=== PATIENT | male | born 1970 | race Caucasian/White ===

== ENCOUNTER 2024-10-01 10:48 | Emergency (ER) | payer MEDICAID ==
[~2024-10-01] VITALS: Ht 182.9 cm; Wt 56.8 kg
[2024-10-01 10:57] VITALS: BP 116/77; PULSE 109; RESP 16; TEMP 98.4; O2SAT 95
--- NOTE | 2024-10-01 11:36 | Physician Documentation ---
History of Present Illness ~ Chief Complaint: Catheter Problem Stated Complaint: CATH COMPLICATIONS Time Seen by MD: 11:50 HPI Presents to the ED with a complaint of a longstanding indwelling catheter. Said he is supposed to have his catheter replaced every month secondary to a neurogenic bladder and being paralyzed however he is seven days passed a month to have his catheter replaced and he was also diagnosed with a UTI. He states that he was prescribed ciprofloxacin not picked it up yet Day of Onset: Oct 01, 2024 Medication Reconciliation Allergies: Coded Allergies: No Known Allergies (Unverified , 10/01/24) Review of Systems All Other Systems at this time: Reviewed and Negative ROS As stated above in the HPI, otherwise all systems are reviewed and negative. Physical Exam Vital Signs: Temperature: 98.4, Source: Temporal, Heart Rate: 109, Respiratory Rate: 16, BP: 116/77, Pulse Oximetry: 95, Weight: 56.820 Oxygen Flow Rate: 0 Physical Exam General: Alert, no apparent distress. HEENT: PERRL, EOMI, no injection, moist mucous membranes. Neck: Full range of motion. Respiratory: Lungs clear, no respiratory distress. Chest: No accessory muscle use. Cardiovascular: Regular rate and rhythm, no murmurs. Gastrointestinal: Soft, nontender, nondistended. Bowels sounds present. Extremities: Normal range of motion, no deformity. Neurologic: Oriented x4. Psychiatric: Normal mood and affect. Skin: Normal color, warm and dry. No edema, no ecchymosis. Progress Results/Orders Results/Orders Orders - MARK GUPTA AUTOMOTIVE GENERATOR REPAIRER General Nursing Order (10/01/24 ) Vital Signs 10/01/24 10:57 Temp 98.4 Pulse 109 Resp 16 B/P (MAP) 116/77 Pulse Ox 95 O2 Flow Rate 0 Medical Decision Making Findings Patient has a Lim catheter was replaced, considering he has already been placed on antibiotics just needs to pick them up we will start him on Cipro here and have him parts picker his prescription at the pharmacy Urinary Diff Dx:Considerations: Include: AAA, Aortic dissection, Appendicitis, Appendicitis train, Bowel obstruction, Bladder outlet obstruc., Cholelithiasis, Choleangitis, Cholecystitis, DJD, Epididymitis, Hepatitis, HNP, Impaction, Musculoskeletal pain, Pancreatitis, Postoperative Comp., Prostatitis, Pyelonephritis, Renal failure, Renal infarction, Strain, Urolithiasis, Urinary Obstruction, Urethritis, Urinary retention, UTI, Other Departure Disposition: HOME / SELF CARE / HOMELESS Impression: Primary Impression: UTI (urinary tract infection) Condition: Stable Discharge Instructions: Indwelling Urinary Catheter Care, Adult Additional Instructions: Take your medication as prescribed. Referrals: NO PRIMARY CARE PROVIDER (PCP) Education Educated: Patient Educated regarding: diagnosis Signature Scribe Signature: v Attestation: The note accurately reflects work and decisions made by me.Mark Segovia NP 10/01/24 11:35 MARK GUPTA NP Oct 01, 2024 11:36
[2024-10-01] MEDS: ciprofloxacin 250mg tablet PO ONE (12:26)
== END 2024-10-01 12:40 | disposition home or self-care (01) ==
LOC: ER 10:49
DX: N39.0 Urinary tract infection, site not specified (principal)
CPT/HCPCS: 51702; 99284; A4314

== ENCOUNTER 2024-10-27 18:56 | Emergency (ER) | payer MEDICAID ==
[2024-10-27 19:05] VITALS: BP 161/83; PULSE 97; RESP 15; O2SAT 98
--- NOTE | 2024-10-27 21:01 | Physician Documentation ---
History of Present Illness ~ Chief Complaint: Wound Re-Check Stated Complaint: PRESSURE SORES Time Seen by MD: 19:41 Primary Medical Doctor: Out of town HPI Patient is seen today with complaints of bleeding pressure ulcer after wound debridement at wound care earlier today. Patient states he is on a blood thinner and is paralyzed from the waist down and is concerned about excessive bleeding after debridement of his pressure ulcer wound of his left buttocks. Patient has no other concern or complaint at this time. Tetanus within 5 years?: No Medication Reconciliation Allergies: Coded Allergies: No Known Allergies (Unverified , 10/27/24) Review of Systems Constitutional: Denies: chills, fever, weakness Eyes: Denies: pain, blurred vision ENT: Denies: ear pain, nose pain, throat pain, mouth pain Respiratory: Denies: cough, shortness of breath Cardiovascular: Denies: chest pain, palpitations Gastrointestinal: Denies: abdominal pain, nausea, vomiting Genitourinary: Denies: burning, dysuria Male Genitalia: Denies: penile discharge, testicular pain Neurological: Denies: headache, dizziness Musculoskeletal: Denies: pain, swelling Integumentary: Denies: rash, lesions Allergic/Immunologic: Denies: hives, itching Hematologic/Lymphatic: Denies: no symptoms reported Psychiatric: Denies: depression, anxiety Physical Exam Vital Signs: Temperature: 98.2, Heart Rate: 97, Respiratory Rate: 15, BP: 161/83, Pulse Oximetry: 98 Physical Exam General: Awake and Alert, no acute distress. HEENT: Conjunctiva pink, Sclera clear, Mucus Membranes moist. Neck: Supple without masses and tenderness. Resp: Unlabored. Lungs clear to auscultation bilaterally. Heart: Regular Rate and rhythm, normal S1 and S2 without murmur, rub or gallop. Extremities: No cyanosis,clubbing or edema. Skin: Patient on exam does have pressure ulcer of left buttocks that is not actively bleeding however the bandage is soaked with blood. There is no surrounding erythema or sign of infection. Ulceration is approximately 1 cm in diameter. Progress Results/Orders Results/Orders Vital Signs 10/27/24 19:05 Temp 98.2 Pulse 97 Resp 15 B/P (MAP) 161/83 Pulse Ox 98 Medical Decision Making Findings Patient is seen today with complaints of bleeding pressure ulcer after wound debridement at wound care earlier today. Patient states he is on a blood thinner and is paralyzed from the waist down and is concerned about excessive bleeding after debridement of his pressure ulcer wound of his left buttocks. Patient has no other concern or complaint at this time. Patient did have wound bandaged and will have wound bandaged again in two days at his house and will follow up with Wound Care next Friday as patient outlined. Return to ED with any worsening, concerning or changing symptoms. Departure Disposition: HOME / SELF CARE / HOMELESS Impression: Primary Impression: Wound Condition: Improved Discharge Instructions: Wound Care, Adult Additional Instructions: Patient did have wound bandaged and will have wound bandaged again in two days at his house and will follow up with Wound Care next Friday as patient outlined. Return to ED with any worsening, concerning or changing symptoms. Referrals: NO PRIMARY CARE PROVIDER (PCP) Signature Scribe Signature: No scribe Attestation: No scribe ERIN RUBIN PAC Oct 27, 2024 21:01
[2024-10-27 21:30] VITALS: TEMP 98.2
== END 2024-10-27 21:31 | disposition home or self-care (01) ==
LOC: ER 18:57
DX: L89.329 Pressure ulcer of left buttock, unspecified stage (principal)
CPT/HCPCS: 99281; 99282; A6258

== ENCOUNTER 2024-11-02 11:36 | Inpatient (IN) | payer MEDICAID ==
[~2024-11-02] VITALS: Ht 182.9 cm; Wt 59.1 kg
--- NOTE | 2024-11-02 12:49 | Physician Documentation ---
History of Present Illness ~ Chief Complaint: Wound Stated Complaint: WOUNDS Time Seen by MD: 12:03 OK to notify your PCP?: Yes Primary Medical Doctor: Out of town HPI 54-year-old male presenting with a wound on his buttock area and his rights posterior thigh. Patient states that it does not have feeling in his legs because he is a paraplegic however he has noticed an increased mouth odorous sent over the past couple of days. Additionally he states that he has been having some subjective fevers and chills and that his abdomen has started to hurt slightly. 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 He ambulates by wheelchair and often gets wounds. He otherwise denies any chest pain, shortness of breath or any other associated symptoms. Tetanus within 5 years?: No Medication Reconciliation Allergies: Coded Allergies: No Known Allergies (Unverified , 11/02/24) Scheduled Clopidogrel Bisulfate (Clopidogrel), 1 TAB PO DAILY, (Reported) Losartan Potassium* (Cozaar*), 12.5 MG PO DAILY, (Reported) Methocarbamol (Methocarbamol), 1 TAB PO Q12H, (Reported) Metoprolol Succinate (Metoprolol Succinate), 12.5 MG PO DAILY, (Reported) Oxybutynin Chloride (Oxybutynin Chloride), 1 TAB PO DAILY, (Reported) Scheduled PRN Nitroglycerin SL* (Nitrostat SL*), 1 TAB SL Q5MIN PRN for Chest pain Q5min PRNx3-call MD, (Reported) Miscellaneous Medications Nitroglycerin (Nitroglycerin), (Reported) Discontinued Medications Apixaban (Eliquis), 1 TAB PO DAILY, (Reported) Losartan Potassium (Losartan Potassium), 1 TAB PO DAILY, (Reported) Discontinued Reason: wrong med Methocarbamol (Methocarbamol), (Reported) Discontinued Reason: Other Metoprolol Succinate (Metoprolol Succinate), 1 TAB PO DAILY, (Reported) Discontinued Reason: Other Review of Systems All Other Systems at this time: Reviewed and Negative Physical Exam Vital Signs: Temperature: 97.8, Source: Temporal, Heart Rate: 84, Respiratory Rate: 18, BP: 158/71, Pulse Oximetry: 98, Weight: 59.090 Physical Exam I have reviewed the triage vitals. CONST: Well developed and well nourished. In no acute distress HENT: Head Atraumatic EYES: Pupils are equal, round and reactive to light. Normal conjunctiva NECK: Normal range of motion. Supple. CARDIO: Normal rate and regular rhythm. No murmurs, rubs, or gallops. S1, S2. PULM/CHEST: No respiratory distress. Lungs clear to auscultation. No wheeze ABD: Soft and nontender. Nondistended. Bowel sounds normal. No guarding. : Exam deferred MSK: Paraplegia. There is a stage II decubitus ulcer with surrounding erythema and induration over the right buttock area as well as a stage I ulcer over the posterior right thigh with surrounding erythema. NEURO: Alert and oriented to person, place and time. Moving all extremities SKIN: Warm and dry. PSYCH: Normal mood and affect. Good eye contact. Progress Results/Orders Results/Orders Orders - VITO FLORES MD Culture Blood (11/02/24 12:42) Ct Abdomen Pelvis (11/02/24:) Page Hospitalist (11/02/24 16:45) Fill Out Med Reconciliation (11/02/24 16:45) Wound Care Consult (11/02/24 17:01) Electronic Die Maker (11/02/24 17:01) Completed Orders - VITO FLORES MD Electrocardiogram (11/02/24 12:42) Cbc/Diff (11/02/24 12:42) CK (11/02/24 12:42) CKMB (11/02/24 12:42) Pt Inr (11/02/24 12:42) PTT (11/02/24 12:42) PBNP (11/02/24 12:42) MG (11/02/24 12:42) CMP (11/02/24 12:42) Hs Troponin I W Calculations (11/02/24 12:42) Hs Troponin I W Calculations (11/02/24 14:42) Lacticsepsis (11/02/24 12:42) Ct Abdomen Pelvis (11/02/24 15:25) Iohexol 300mg/Ml 100ml Inj. (Omnipaque-3 (11/02/24 15:02) Ua W/Microscopic, Cult If Ind (11/02/24 15:35) Piperacillin/Tazo 3.375gm/50ml (Zosyn 3. (11/02/24 16:20) Normal Saline 1000ml (0.9% Sodium Chlori (11/02/24 16:20) Cult Urine + [address] (11/02/24 16:40) Vital Signs 11/02/24 11/02/24 11/02/24 11:52 13:01 15:02 Temp 97.8 Pulse 84 98 Resp 18 16 B/P (MAP) 158/71 125/89 (101) Pulse Ox 98 98 O2 Flow Rate 0 Laboratory Tests Test 11/02/24 12:45 11/02/24 12:54 11/02/24 14:44 11/02/24 15:35 Troponin I High Sensitivity 4 4 White Blood Count 8.7 Red Blood Count 4.58 L Hemoglobin 13.2 L Hematocrit 39.6 L Mean Corpuscular Volume 86.5 Mean Corpuscular Hemoglobin 28.9 Mean Corpuscular Hemoglobin Concent 33.4 Red Cell Distribution Width 14.3 Platelet Count 333 Mean Platelet Volume 7.1 L Neutrophils (%) (Auto) 63.1 Lymphocytes (%) (Auto) 23.4 Monocytes (%) (Auto) 9.3 Eosinophils (%) (Auto) 3.7 Basophils (%) (Auto) 0.5 Neutrophils # (Auto) 5.5 Lymphocytes # (Auto) 2.0 Monocytes # (Auto) 0.8 Eosinophils # (Auto) 0.3 Basophils # (Auto) 0.0 CBC Comment Prothrombin Time 9.8 INR International Normalized Ratio 1.0 Activated Partial Thromboplast Time 28 Coagulation Comments Sodium Level 136 Potassium Level 3.3 L Chloride Level 104 Carbon Dioxide Level 27.9 Anion Gap 4 L Blood Urea Nitrogen 11 Creatinine 0.63 Estimated GFR/1.73 m2 > 90 BUN/Creatinine Ratio 17.5 Glucose Level 87 Lactic Acid Level 0.9 Calcium Level 8.4 L Magnesium Level 1.9 Total Bilirubin 0.4 Aspartate Amino Transf (AST/SGOT) 14 Alanine Aminotransferase (ALT/SGPT) 39 Alkaline Phosphatase 78 Total Creatine Kinase 84 Creatine Kinase MB 0.6 Creatine Kinase MB Relative Index Pro-B-Type Natriuretic Peptide 73 Total Protein 7.1 Albumin 3.2 L Globulin 3.9 Albumin/Globulin Ratio 0.8 L Chemistry Comments Troponin I High Sens Percent Delta 0 Troponin I Hi Sens Absolute Change 0 Urine Specimen Description Voided Urine Color Straw Urine Clarity Slightly cloudy Urine pH 7.0 Urine Specific [place] 1.015 Urine Protein 30 H Urine Glucose (UA) Negative Urine Ketones Negative Urine Occult Blood Moderate H Urine Nitrite Positive H Urine Bilirubin Negative Urine Urobilinogen 0.2 Urine Leukocyte Esterase Large H Urine RBC 3-10 Urine WBC 50-100 H Urine WBC Clumps Moderate Urine Squamous Epithelial Cells None seen Urine Calcium Oxalate Crystals Few Urine Bacteria 2+ Urine Yeast Moderate Urine Culture Indicated Indicated Volume Urine Centrifuged 10 ml Urine Comment Microbiology Date/Time Source Procedure Growth Status 11/02/24 16:40 Urine Voided Urine Culture - Final Staphylococcus Aureus Complete EKG/XRAY/CT/US/VASC/MRI EKG : Additional Comment EKG, as interpreted by me indicating normal sinus rhythm with the rate of 92 bpm, normal access, no ischemia CT : Impression Exam: CT CT ABDOMEN PELVIS W/ IV CONTRAST History: abd and pelvic pain COMPARISON: None Technique: Multidetector spiral CT of the abdomen and pelvis was performed from lung bases to pubic symphysis. Intravenous contrast was administered during this examination. Portal venous imaging was obtained. Axial, coronal and sag ittal multiplanar reformats were performed by the technologist on a separate workstation. Radiation Dose : Abdomen/Pelvis: CTDIvol 17 mGy, DLP 901 mGy*cm. CONTRAST: Type of contrast: Omni 300 Contrast injected: 100 mL Findings: Lung Bases: No acute or significant lung base finding. Normal heart size. No pleural or pericardial effusion. Liver: The liver is normal in size. No focal lesions. Normal hepatic vascular enhancement. Gallbladder and biliary Tree: Unremarkable Spleen: Unremarkable Pancreas: The pancreas is normal in appearance without focal lesions or abnormal enhancement. Adrenal Glands: Unremarkable Kidneys: No hydronephrosis. Bilateral renal cysts. Bladder: Bladder is decompressed with a Adan catheter and cannot be adequately assessed. Bowel: The stomach is grossly normal in appearance. Small bowel and colon are normal in caliber and distribution. Normal appendix is visualized in the right lower quadrant without findings of appendicitis. Ascites: Absent Lymphadenopathy: Shotty retroperitoneal lymphadenopathy. Mildly prominent bilateral inguinal lymph nodes. Abdominal wall and Mesentery: Unremarkable. Vasculature: The visualized abdominal aorta is normal in size and caliber. Abdominal and pelvic vessels demonstrate normal enhancement. Pelvic Organs: Unremarkable Musculoskeletal: Severe atrophy of the pelvic and lower extremity musculature. Open wound in the posterior left gluteal region. Possible open wound in the posterior right gluteal region. No loculated subcutaneous fluid collection. Fatty stranding extending to the inferior pubic rami bilaterally. IMPRESSION: 1. No acute abdominal or pelvic finding. 2. Likely bilateral open decubitus ulcers greater on the left. No loculated fluid collection in the subcutaneous tissues. Fatty stranding extends to the inferior pubic rami bilaterally. Clinical correlation and continued follow-up is recommended. Shotty retroperitoneal lymphadenopathy. Mildly prominent bilateral inguinal lymph nodes. Could be reactive. 3. Bilateral renal cysts. Radiation optimization: All CT scans at this facility use at least one of these dose optimization techniques: Automated exposure control mA and/or kV adjustment per patient size (includes targeted exams where dose is matched to clinical indication) or iterative reconstruction. Medical Decision Making Additional Comment 54 year-old male paraplegic presenting with bilateral sacral decubitus ulcers with wound infections. Additionally he has a UTI with indwelling chronic adan catheter. Patient was medicated with IV vancomycin and Zosyn as well as IV fluids. A CT of the abdomen and pelvis showed some fat stranding around the site of the ulcers. Additionally, he has some edema and fat training around his pubic synthesis as well. Patient will require admission for further treatment and care. Departure Disposition: 09 ADMITTED INPATIENT Admission Level of Care: Med/Surg with Tele Impression: Primary Impression: UTI (urinary tract infection) Additional Impressions: Wound cellulitis Sacral decubitus ulcer Condition: Guarded Referrals: NO PRIMARY CARE PROVIDER (PCP) Signature Scribe Signature: 1 Attestation: 1 VITO FLORES MD Nov 02, 2024 12:49
--- NOTE | 2024-11-02 13:08 | ELECTROCARDIOGRAPH REPORT ---
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 Graham Rm Measurements Intervals [place] Rate: 83 P: 62 IN: 117 QRS: 53 QRSD: 89 T: 54 QT: 342 QTc: 402 Interpretive Statements Sinus rhythm Borderline short IN interval Electronically Signed On 11-10-2024 20:07:[address] Graham Rm Please click the below link to view image of tracing.
[2024-11-02 13:11] LABS: MEAN PLATELET VOLUME 7.1 FL (7.4-10.4); RED CELL DISTRIBUTION WIDTH 14.3 % (11.5-14.5)
[2024-11-02 13:24] LABS: APTT 28 SECONDS (22-32); INR 1.0 INR
[2024-11-02 13:36] LABS: CREATININE 0.63 MG/DL (0.60-1.10); TOTAL CARBON DIOXIDE 27.9 MMOL/L (24-32); eCRCL 113 ML/MIN; eGFR > 90 ML/MIN
[2024-11-02 13:39] LABS: CREATINE KINASE MB 0.6 ng/ml (0.3-3.6); PRO BRAIN NATRIURETIC PEPTIDE 73 PG/ML (0-125)
[2024-11-02] MEDS ORDERED: iohexol 300mg/ml 100ml inj. ONE (15:02)
[2024-11-02 16:11] LABS: LEUKOCYTE ESTERASE ,URINE LARGE (Neg); NITRITES, URINE POSITIVE (Neg); OCCULT BLOOD,URINE MODERATE (Neg)
[2024-11-02 16:14] LABS: UA COLLECTION TYPE VOIDED
[2024-11-02] MEDS: normal saline 1000ml 1,000 ML IV ONE (16:20)
[2024-11-02] MEDS ORDERED: vancomycin inj 1,000 MG in normal saline 250ml IV soln 250 ML IV ONE (16:20)
[2024-11-02] MEDS ORDERED: piperacillin/tazo 3.375gm/50ml 50 ML IV SCH (16:20)
[2024-11-02] MEDS ORDERED: vancomycin/NS 1 GM ADD-VANTAGE 250 ML IV ONE (16:30)
[2024-11-02 16:31] LABS: SQUAMOUS EPITHELIAL CELL,UR NONE SEEN /LPF (FEW)
[2024-11-02 16:34] LABS: WBC CLUMPS,URINE MODERATE /HPF (NEGATIVE)
[2024-11-02 16:36] LABS: CAL OXALATE CRYSTALS FEW /HPF (NEGATIVE)
[2024-11-02 16:39] LABS: YEAST MODERATE /HPF (NEGATIVE)
--- NOTE | 2024-11-02 16:47 | RADIOLOGY REPORT ---
Exam: CT CT ABDOMEN PELVIS W/ IV CONTRAST History: abd and pelvic pain COMPARISON: None Technique: Multidetector spiral CT of the abdomen and pelvis was performed from lung bases to pubic symphysis. Intravenous contrast was administered during this examination. Portal venous imaging was obtained. Axial, coronal and sagittal multiplanar reformats were performed by the technologist on a separate workstation. Radiation Dose : Abdomen/Pelvis: CTDIvol 17 mGy, DLP 901 mGy*cm. CONTRAST: Type of contrast: Omni 300 Contrast injected: 100 mL Findings: Lung Bases: No acute or significant lung base finding. Normal heart size. No pleural or pericardial effusion. Liver: The liver is normal in size. No focal lesions. Normal hepatic vascular enhancement. Gallbladder and biliary Tree: Unremarkable Spleen: Unremarkable Pancreas: The pancreas is normal in appearance without focal lesions or abnormal enhancement. Adrenal Glands: Unremarkable Kidneys: No hydronephrosis. Bilateral renal cysts. Bladder: Bladder is decompressed with a Lim catheter and cannot be adequately assessed. Bowel: The stomach is grossly normal in appearance. Small bowel and colon are normal in caliber and d istribution. Normal appendix is visualized in the right lower quadrant without findings of appendicit is. Ascites: Absent Lymphadenopathy: Shotty retroperitoneal lymphadenopathy. Mildly prominent bilateral inguinal lymph n odes. Abdominal wall and Mesentery: Unremarkable. Vasculature: The visualized abdominal aorta is normal in size and caliber. Abdominal and pelvic vess els demonstrate normal enhancement. Pelvic Organs: Unremarkable Musculoskeletal: Severe atrophy of the pelvic and lower extremity musculature. Open wound in the post erior left gluteal region. Possible open wound in the posterior right gluteal region. No loculated fitzpatrick bcutaneous fluid collection. Fatty stranding extending to the inferior pubic rami bilaterally. IMPRESSION: 1. No acute abdominal or pelvic finding. 2. Likely bilateral open decubitus ulcers greater on the left. No loculated fluid collection in the subcutaneous tissues. Fatty stranding extends to the inferior pubic rami bilaterally. Clinical yohan elation and continued follow-up is recommended. Shotty retroperitoneal lymphadenopathy. Mildly promi nent bilateral inguinal lymph nodes. Could be reactive. 3. Bilateral renal cysts. Radiation optimization: All CT scans at this facility use at least one of these dose optimization lillian hniques: Automated exposure control mA and/or kV adjustment per patient size (includes targeted exams where dose is matched to clinical indication) or iterative reconstruction. HS:Y
[2024-11-02] MEDS ORDERED: potassium Cl 20 mEq SR tablet PO PRN (17:15)
[2024-11-02] MEDS ORDERED: magnesium hydroxide 30ml (MOM) UD suspension PO PRN (17:15)
[2024-11-02] MEDS ORDERED: HYDROmorphone inj. 0.5 MG/0.5 ML DISP.SYRIN IV PRN (17:15)
[2024-11-02] MEDS ORDERED: magnesium sulf-water 2g/50mL 50 ML IV PRN (17:15)
[2024-11-02] MEDS ORDERED: magnesium sulf-water 4G/100mL 100 ML IV PRN (17:15)
[2024-11-02] MEDS ORDERED: HYDROcodone/acetaminophen 5mg/325mg tablet PO PRN (17:15)
[2024-11-02] MEDS ORDERED: potassium Cl 40MEQ/1/2NS 520ml 520 ML IV PRN (17:15)
[2024-11-02] MEDS ORDERED: HYDROmorphone/PF 0.2 MG/ML SYRINGE IV PRN (17:15)
[2024-11-02] MEDS ORDERED: ondansetron/PF 4mg/2ml inj IV PRN (17:15)
[2024-11-02] MEDS: normal saline 1000ml 1,000 ML IV SCH (17:45)
[2024-11-02] MEDS ORDERED: VANCOMYCIN 500MG/WATER FOR INJ (PEG) PREMIX 100 ML IV ONE (17:45)
[2024-11-02] MEDS: piperacillin/tazo 3.375gm/50ml 50 ML IV ONE (17:52)
[2024-11-02] MEDS ORDERED: NITR0.4T48 (19:36)
[2024-11-02] MEDS ORDERED: LOSA25TA41 PO (19:36)
[2024-11-02] MEDS ORDERED: METH-798 (19:36)
[2024-11-02] MEDS ORDERED: OXYB5TAB21 PO (19:36)
[2024-11-02] MEDS ORDERED: APIX5TAB3 PO (19:36)
[2024-11-02] MEDS ORDERED: METO-395 PO (19:36)
[2024-11-02] MEDS ORDERED: CLOP75TA34 PO (19:36)
[2024-11-02] MEDS: enoxaparin 40mg/0.4ml syringe SQ SCH (20:00)
[2024-11-02] MEDS: K and/or MAG REPLACEMENT MC SCH (20:00)
[2024-11-02] MEDS: docusate sod 100mg capsule PO SCH (20:00)
[2024-11-02] MEDS: GADOTERATE MEGLUMINE 7.5 MMOL/15 ML VIAL IV ONE (20:38)
--- NOTE | 2024-11-02 21:18 | HISTORY AND PHYSICAL ---
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 Wound care consult is ordered the patient was started on IV vancomycin IV Zosyn which will be continued Allergies: Coded Allergies: No Known Allergies (Unverified , 11/02/24) Home Medications Home Medications Active Reported Nitroglycerin 0.4 Mg Tab.subl Eliquis (Apixaban) 5 Mg Tablet 1 Tab PO DAILY Metoprolol Succinate 25 Mg Tab.sr.24h 1 Tab PO DAILY Clopidogrel (Clopidogrel Bisulfate) 75 Mg Tablet 1 Tab PO DAILY Losartan Potassium 25 Mg Tablet 1 Tab PO DAILY Oxybutynin Chloride 5 Mg Tablet 1 Tab PO DAILY Methocarbamol 750 Mg Tablet Past Medical History Past Medical History Myocardial infarction/coronary artery disease, paraplegia x seven half years secondary to spinal stroke, hypertension Past Surgical History Surgical History Comment Coronary angiogram with stent placement Family History Family History: Patient reports no known family medical history. Past Social History Social History Comment Quit smoking cigarettes one year ago, rare alcohol intake, denies any illicit drug use. Full code status ROS ROS Except for positives in the HPI the rest of the 14 point review systems is negative Exam Vitals: Vital Signs Date Time Temp Pulse Resp B/P (MAP) Pulse Ox O2 Delivery O2 Flow Rate FiO2 11/02/24 15:02 98 16 125/89 (101) 98 0 11/02/24 11:52 97.8 General: Gen. No acute distress alert and oriented 4 Lungs clear to ascultation bilaterally, no wheezes rales or rhonchi appreciated Heart normal sinus rhythm no murmurs rubs or clicks noted Abdomen soft nontender bowel sounds are normoactive Lower extremities no clubbing cyanosis, nor edema appreciated bilaterally Skin: Left buttocks tunneling ulcer I did not measure the depth but the size is approximately 3 x 3 cm. Smaller decubitus ulcer on the right Diagnostic Data Last Recorded Lab Results: 11/02/24 1254 11/02/24 1254 Diagnostic Data: Laboratory Tests Test 11/02/24 12:54 Prothrombin Time 9.8 SECONDS (9.0-12.0) INR International Normalized Ratio 1.0 INR Activated Partial Thromboplast Time 28 SECONDS (22-32) Coagulation Comments Advance Care Planning Advanced Care plannin - 30 Minutes Problems: (1) UTI (urinary tract infection) Status: Acute Additional Plan # bilateral tunneling decubitus ulcers of the buttocks Fat stranding to the bilateral pubic rami seen on CT scan MRI is ordered to evaluate for osteomyelitis IV Zosyn IV vancomycin Wound care consult Consider Infectious Disease consult # paraplegia The patient is able to transfer with a slide board If needed physical therapy be ordered however this time that has not needed # hypertension Continue losartan # coronary artery disease Continue clopidogrel Continue metoprolol # UTI secondary to cystitis Secondary to chronic indwelling Lim catheter Change Lim Urine culture sent Currently on IV Zosyn # DVT prophylaxis Continue Plavix I spent a total of minutes on reviewing various resuscitative measures/ ACP with the patient at the time of admission. The patient has decided on full code status Date of Service: Nov 02, 2024 Billing Provider: CLAY HESS DO Common Visit Codes: 56350-TETQXEI INP/OBS CARE (HIGH) Secondary Visit Codes: 67320-[id number] CARE PLAN 30 MINUTES CLAY HESS DO Nov 02, 2024 21:18
[2024-11-02 21:30] VITALS: BP 130/74; PULSE 92; RESP 14; TEMP 98.2; O2SAT 98
[2024-11-02] MEDS: potassium Cl 20 mEq SR tablet PO PRN (21:53)
[2024-11-02] MEDS: VANCOMYCIN/WATER FOR INJ (PEG) 1.5GM/300 ML IVPB IV ONE (21:55)
[2024-11-03] MEDS: piperacillin/tazo 4.5gm/100ml 100 ML IV SCH (00:05)
[2024-11-03 04:26] LABS: MEAN PLATELET VOLUME 6.8 FL (7.4-10.4); RED CELL DISTRIBUTION WIDTH 14.7 % (11.5-14.5)
[2024-11-03 04:48] LABS: CREATININE 0.72 MG/DL (0.60-1.10); TOTAL CARBON DIOXIDE 23.6 MMOL/L (24-32); eCRCL 99 ML/MIN; eGFR > 90 ML/MIN
--- NOTE | 2024-11-03 05:35 | RADIOLOGY REPORT ---
CLINICAL INDICATION: Bilateral decubitus ulcers with fat stranding reaching the pubic rami bilat COMPARISON: CT scan of the abdomen pelvis performed on 11/03/2024. TECHNIQUE: Multiplanar, multisequence MRI of the pelvis (musculoskeletal protocol) was performed wit hout and with intravenous contrast. CONTRAST: 16 mL Clariscan INTERPRETATION: Limited evaluation due to artifact and some of the sequences from malfunctioning MRI coil. Bones and articular cartilage: There is trace T1 hypointensity in the posterior cortex of the left is chial tuberosity with a Edema and enhancement. There is no marrow replacing process in the right isch ial tuberosity are the rest of the pelvic bones. There is no fracture or dislocation. There is no demarcus scular necrosis. Soft tissues: There is subcutaneous edema in the bilateral lower gluteal folds extending to the ischi al tuberosities. There is peripheral enhancement of this area of edema. There is a skin defect on t he left side of the area of inflammation. There is no fluid collection. There is significant fatty re placement of all muscles in the visualized pelvis and proximal femurs. Mild edema in the gluteus musc ulature bilaterally. There is no soft tissue mass or retracted tendon tear. There is no lymphadenop athy. Lim catheter in the urinary bladder. IMPRESSION: 1. Technically limited study due to mild functioning MRI coil. 2. Bilateral cellulitis and inflammation in the lower gluteal folds with a skin defect on the left si de suggesting ulceration. The inflammatory changes extend to the ischial tuberosities. There are fin dings suspicious for mild acute osteomyelitis of the left ischial tuberosity. No abscess. 3. Significant fatty replacement of all muscles in the visualized pelvis.
[2024-11-03 06:00] VITALS: BP 148/72; PULSE 90; RESP 16; TEMP 96.6; O2SAT 97
[2024-11-03 10:00] VITALS: BP 128/77; PULSE 95; RESP 16; TEMP 98; O2SAT 98
[2024-11-03] MEDS: vancomycin/NS 1 GM ADD-VANTAGE 250 ML IV SCH (10:33)
[2024-11-03] MEDS: metoprolol succinate 25mg (24-HOUR) SR. Tablet PO SCH (10:34)
[2024-11-03] MEDS ORDERED: METH-798 PO (16:42)
[2024-11-03] MEDS ORDERED: NITR0.4T51 SL (16:44)
[2024-11-03] MEDS ORDERED: LOSA-415 PO (16:48)
[2024-11-03] MEDS: JUVEN Shake w/Arg/Glut/Ca2+Bmb (Juven 19.3gm) pkt 240ml PO SCH (17:28)
[2024-11-03 18:00] VITALS: BP 135/79; PULSE 72; RESP 18; TEMP 97.5; O2SAT 98
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
[2024-11-03 20:00] VITALS: RESP 18; O2SAT 98
[2024-11-03 22:00] VITALS: BP 103/48; PULSE 82; RESP 14; TEMP 98.2; O2SAT 97
[2024-11-04 06:00] VITALS: BP 117/70; PULSE 97; RESP 18; TEMP 98.1; O2SAT 97
[2024-11-04 08:00] VITALS: RESP 17; O2SAT 100
[2024-11-04 10:00] VITALS: BP 120/69; PULSE 76; RESP 17; TEMP 97.2; O2SAT 100
[2024-11-04] MEDS: VANCOMYCIN LEVEL IV ONE (10:14)
[2024-11-04 10:28] LABS: MEAN PLATELET VOLUME 7.2 FL (7.4-10.4); RED CELL DISTRIBUTION WIDTH 14.4 % (11.5-14.5)
[2024-11-04 10:45] LABS: CREATININE 0.67 MG/DL (0.60-1.10); TOTAL CARBON DIOXIDE 26.9 MMOL/L (24-32); eCRCL 107 ML/MIN; eGFR > 90 ML/MIN
[2024-11-04] MEDS: HYDROcodone/acetaminophen 10/325mg tab PO PRN (12:26)
[2024-11-04] MEDS: JUVEN Smoothie Arginine/Glut./Ca2+Bmb (Juven 19.3pkt) 240ml cup PO SCH (12:50)
[2024-11-04 18:00] VITALS: BP 123/73; PULSE 70; RESP 18; TEMP 97.2; O2SAT 99
--- NOTE | 2024-11-04 18:56 | PROGRESS NOTE ---
Daily Progress Note Providers to CC ~ Antibiotic Timeout Antibiotic Ordered?: Yes Subjective Patient was seen in presence of Peter Simmons on surgical floor today. Patient's wound examined and I have not noticed any tunneling of the wound , reviewed pelvic MRI results. Infectious disease consultation requested from Dr. Paul and she is willing to evaluate the patient in a.m. Objective Vital Signs Date Time Temp Pulse Resp B/P (MAP) Pulse Ox O2 Delivery O2 Flow Rate FiO2 11/04/24 12:26 16 11/04/24 10:00 97.2 76 120/69 (86) 100 Room Air 11/04/24 08:00 0.0 Result Diagram: 11/04/24 0957 11/04/24 0957 General-patient not in any acute distress, alert awake oriented, chronically ill-appearing HEENT-atraumatic normocephalic, neck supple without elevated JVD, No lymphadenopathy bilaterally. Poor dentition Eyes-no icterus or pallor seen in eyes Chest-clear to auscultation bilaterally, breathing nonlabored no tachypnea, no wheezing, no crepitation, no crackles. Heart-S1-S2 normal, regular heart rate no murmur Abdomen bowel sounds positive on auscultation, soft nondistended nontender no guarding, no rigidity Neurology-grossly intact, nonfocal alert awake oriented Skin / Extremity- no pedal edema able to move all 4 extremities, well-healing round circumscribed left buttock open wound, right buttock wound very small in size and healing well. No tunneling noticed over left buttock wound. 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 The inflammatory changes extend to the ischial tuberosities. There are findings suspicious for mild acute osteomyelitis of the left ischial tuberosity. No abscess. Patient's wound examined and I have not noticed any tunneling of the wound , reviewed pelvic MRI results. Infectious disease consultation requested from Dr. Paul and she is willing to evaluate the patient in a.m. # paraplegia The patient is able to transfer with a slide board If needed physical therapy be ordered however this time that has not needed # hypertension Continue losartan # coronary artery disease Continue clopidogrel Continue metoprolol # UTI secondary to cystitis Secondary to chronic indwelling Lim catheter Change Lim Urine culture sent Currently on IV Zosyn # DVT prophylaxis Continue Plavix Patient's current condition is guarded we will continue to follow patient in a.m. Date of Service: Nov 04, 2024 Billing Provider: EMILIANO OSWALD MD Common Visit Codes: [id number] INP/OBS CARE(HIGH) EMILIANO OSWALD MD Nov 04, 2024 18:56
[2024-11-04 20:00] VITALS: RESP 18; O2SAT 99
[2024-11-04] MEDS: polyethylene glycol 3350 17gm powd pack PO SCH (21:03)
[2024-11-04] MEDS ORDERED: HYDROmorphone inj. 0.5 MG/0.5 ML DISP.SYRIN IV PRN (21:47)
[2024-11-04 22:00] VITALS: BP 136/86; PULSE 70; RESP 18; TEMP 98; O2SAT 97
[2024-11-05 04:49] LABS: MEAN PLATELET VOLUME 6.9 FL (7.4-10.4); RED CELL DISTRIBUTION WIDTH 14.5 % (11.5-14.5)
[2024-11-05 05:07] LABS: CREATININE 0.77 MG/DL (0.60-1.10); TOTAL CARBON DIOXIDE 22.4 MMOL/L (24-32); eCRCL 93 ML/MIN; eGFR > 90 ML/MIN
[2024-11-05 06:00] VITALS: BP 139/90; PULSE 83; RESP 14; TEMP 98; O2SAT 98
[2024-11-05 08:00] VITALS: RESP 18; O2SAT 98
[2024-11-05 10:00] VITALS: BP 134/82; PULSE 79; RESP 16; TEMP 98; O2SAT 98
--- NOTE | 2024-11-05 11:59 | CONSULTATION REPORT - RESIDENT ---
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 Patient reports that he has been paralyzed for over 7 years, he woke up that way one day. He reports they are unsure to whether what caused his spinal cord injury was an emboli or an infection. He does report that since then he has been having decubitus wounds on his buttocks. He states that for the past days he noticed increased malodorous secretion from his wounds, along with chills and lightheadedness. He reports he has had a Lim catheter for several years, he is unsure regarding urinary symptoms in view of he has no sensation in the pelvic area. Patient's urine culture was positive for MRSA and MRSA screen was also positive. 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 Patient has been treated with vancomycin and Zosyn. Infectious Disease has been consulted for further evaluation and management. Allergies: Coded Allergies: No Known Allergies (Unverified , 11/02/24) Home Medications Home Medications Active Reported Cozaar* (Losartan Potassium) 25 Mg Tablet 12.5 Mg PO DAILY Metoprolol Succinate 25 Mg Tab.sr.24h 12.5 Mg PO DAILY Nitrostat SL* (Nitroglycerin) 0.4 Mg Tablet 1 Tab SL Q5MIN PRN Methocarbamol 750 Mg Tablet 1 Tab PO Q12H Nitroglycerin 0.4 Mg Tab.subl Clopidogrel (Clopidogrel Bisulfate) 75 Mg Tablet 1 Tab PO DAILY Oxybutynin Chloride 5 Mg Tablet 1 Tab PO DAILY Past Medical History Past Medical History Paraplegia secondary to possible emboli versus infectious, myocardial infarction status post stent, chronic indwelling Lim catheter, CKD 1, and prediabete Past Surgical History Surgical History Comment Coronary stent secondary to myocardial infarction in 2023 Family History Family History: Patient reports no known family medical history. Past Social History Social History Comment Smoked half to 1 pack of cigarettes daily for the past 30 years, quit 1 year ago ROS ROS All systems were reviewed and found negative except for pertinent positives mentioned in HPI Exam Vitals: Vital Signs Date Time Temp Pulse Resp B/P (MAP) Pulse Ox O2 Delivery O2 Flow Rate FiO2 11/05/24 08:11 83 11/05/24 08:00 18 98 Room Air 11/05/24 06:00 98.0 139/90 (106) 11/04/24 20:00 0.0 General: General: awake, alert oriented to place, time, and person HEENT: No pallor present, no icterus, moist mucous membranes Neck: No masses and tenderness Resp: Unlabored. Lungs clear to auscultation bilaterally. Chest: Normal expansion Cardiovascular: Regular Rate and rhythm, normal S1 and S2 without murmur, rub or gallop Abdomen: Soft and nontender, no organomegaly, no guarding and rigidity, bowel sounds present Neuro: No focal weakness in the upper and lower limb muscles, power of the muscles 5/5 bilateral upper. Paraplegic. Cranial nerves intact Extremities: No cyanosis,clubbing or edema Skin: Warm and Dry. 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 Infectious Disease has been consulted for further evaluation and management of infected decubitus ulcer and possible ischial bone osteomyelitis. Left ischial bone osteomyelitis Infected gluteal decubitus wound Chronic indwelling Lim catheter with possible MRSA colonization CBC is unremarkable Growing MRSA in urine and positive MRSA screen MRI shows mild osteomyelitis in left ischial bone On vancomycin and Zosyn Patient discussed in detail with Dr. Paul, plan: Since patient has done a good job offloading since his injury, and wound is small, he has good chance of recovery with antibiotics Will adjust abx to decrease risk of nephrotoxicity Stop Zosyn Continue Vancomycin Start Ceftriaxone and Flagyl Continue abx for 6 weeks Other comorbidities include: CAD status post stent CKD 1 Prediabetes Management per hospitalist team Disposition: Will continue IV abx for 6 weeks Jerman Glez MD Internal Medicine Resident PGY-2 Date of Service: Nov 05, 2024 Billing Provider: NHI PAUL DO Addendum Patient seen and examined with Dr. Glez. Agree with the above assessment and plan. In brief, patient is a 54 year old paraplegic whom ID is asked to see in consultation for L ischial osteomyelitis. His wound is small - only about 2 cm in diameter and, despite being homeless, he looks to have done a good job offloading over the years. Will recommend 6 weeks of empiric Vanc, Rocephin, Flagyl for which he will need placement JERMAN MCGOWAN Nov 05, 2024 11:59 NHI PAUL DO Nov 05, 2024 23:31
[2024-11-05 18:00] VITALS: BP 119/76; PULSE 73; RESP 14; TEMP 98.2; O2SAT 98
[2024-11-05] MEDS: CefTRIAXone 2gm/D5W 50ml BAG 50 ML IV SCH (18:06)
--- NOTE | 2024-11-05 19:33 | PROGRESS NOTE ---
Daily Progress Note Providers to CC ~ Antibiotic Timeout Antibiotic Ordered?: Yes Subjective Patient was seen in his room no new concern. Patient was evaluated by Infectious Disease team today and further management for antibiotics as per ID specialist. Objective Vital Signs Date Time Temp Pulse Resp B/P (MAP) Pulse Ox O2 Delivery O2 Flow Rate FiO2 11/05/24 17:33 18 11/05/24 10:00 98.0 79 134/82 (99) 98 Room Air 11/04/24 20:00 0.0 Result Diagram: 11/05/24 0438 11/05/24 0438 General-patient not in any acute distress, alert awake oriented, chronically ill-appearing HEENT-atraumatic normocephalic, neck supple without elevated JVD, No lymphadenopathy bilaterally. Poor dentition Eyes-no icterus or pallor seen in eyes Chest-clear to auscultation bilaterally, breathing nonlabored no tachypnea, no wheezing, no crepitation, no crackles. Heart-S1-S2 normal, regular heart rate no murmur Abdomen bowel sounds positive on auscultation, soft nondistended nontender no guarding, no rigidity Neurology-grossly intact, nonfocal alert awake oriented Skin / Extremity- no pedal edema able to move all 4 extremities, well-healing round circumscribed left buttock open wound, right buttock wound very small in size and healing well. No tunneling noticed over left buttock wound. 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 The inflammatory changes extend to the ischial tuberosities. There are findings suspicious for mild acute osteomyelitis of the left ischial tuberosity. No abscess. Patient's wound examined and I have not noticed any tunneling of the wound , reviewed pelvic MRI results. Infectious disease consultation requested from Dr. Paul and she is willing to evaluate the patient in a.m. # paraplegia The patient is able to transfer with a slide board If needed physical therapy be ordered however this time that has not needed # hypertension Continue losartan # coronary artery disease Continue clopidogrel Continue metoprolol # UTI secondary to cystitis Secondary to chronic indwelling Lim catheter Change Lim Urine culture sent Currently on IV Zosyn # DVT prophylaxis Continue Plavix Patient's current condition is guarded we will continue to follow patient in a.m. Date of Service: Nov 05, 2024 Billing Provider: EMILIANO OSWALD MD Common Visit Codes: [id number] INP/OBS CARE(HIGH) EMILIANO OSWALD MD Nov 05, 2024 19:33
[2024-11-05 20:00] VITALS: RESP 14; O2SAT 98
[2024-11-05 22:00] VITALS: BP 112/70; PULSE 86; RESP 18; TEMP 98.1; O2SAT 98
[2024-11-06 06:01] LABS: MEAN PLATELET VOLUME 7.5 FL (7.4-10.4); RED CELL DISTRIBUTION WIDTH 14.9 % (11.5-14.5)
[2024-11-06 06:18] LABS: CREATININE 0.65 MG/DL (0.60-1.10); TOTAL CARBON DIOXIDE 23.7 MMOL/L (24-32); eCRCL 110 ML/MIN; eGFR > 90 ML/MIN
[2024-11-06 07:09] VITALS: BP 131/76; PULSE 86; RESP 20; TEMP 98.1; O2SAT 97
[2024-11-06 07:30] VITALS: RESP 16
[2024-11-06 10:36] VITALS: BP 121/86; PULSE 86; RESP 18; TEMP 98; O2SAT 97
[2024-11-06 18:00] VITALS: BP 158/90; PULSE 109; RESP 15; TEMP 97.7; O2SAT 98
[2024-11-06 20:00] VITALS: RESP 15; O2SAT 98
--- NOTE | 2024-11-06 20:37 | PROGRESS NOTE ---
Daily Progress Note Providers to CC ~ Antibiotic Timeout Antibiotic Ordered?: Yes Subjective Patient was seen in his room looks comfortable. As per Infectious Disease specialist he needs placement and needs six weeks of IV antibiotics. waiting for the placement and caser in [place] aware regarding discharge plan Objective Vital Signs Date Time Temp Pulse Resp B/P (MAP) Pulse Ox O2 Delivery O2 Flow Rate FiO2 11/06/24 10:36 98.0 86 18 121/86 (98) 97 Room Air 11/06/24 07:30 0.0 Result Diagram: 11/06/244 11/06/24 0454 General-patient not in any acute distress, alert awake oriented, chronically ill-appearing HEENT-atraumatic normocephalic, neck supple without elevated JVD, No lymphadenopathy bilaterally. Poor dentition Eyes-no icterus or pallor seen in eyes Chest-clear to auscultation bilaterally, breathing nonlabored no tachypnea, no wheezing, no crepitation, no crackles. Heart-S1-S2 normal, regular heart rate no murmur Abdomen bowel sounds positive on auscultation, soft nondistended nontender no guarding, no rigidity Neurology-grossly intact, nonfocal alert awake oriented Skin / Extremity- no pedal edema able to move all 4 extremities, well-healing round circumscribed left buttock open wound, right buttock wound very small in size and healing well. No tunneling noticed over left buttock wound. 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 The inflammatory changes extend to the ischial tuberosities. There are findings suspicious for mild acute osteomyelitis of the left ischial tuberosity. No abscess. Patient's wound examined and I have not noticed any tunneling of the wound , reviewed pelvic MRI results. Infectious disease consultation requested from Dr. Paul and she is willing to evaluate the patient in a.m. # paraplegia The patient is able to transfer with a slide board If needed physical therapy be ordered however this time that has not needed # hypertension Continue losartan # coronary artery disease Continue clopidogrel Continue metoprolol # UTI secondary to cystitis Secondary to chronic indwelling Lim catheter Change Lim Urine culture sent Currently on IV Zosyn # DVT prophylaxis Continue Plavix Patient's current condition is guarded we will continue to follow patient in a.m. Date of Service: Nov 06, 2024 Billing Provider: EMILIANO OSWALD MD Common Visit Codes: [id number] INP/OBS CARE(HIGH) EMILIANO OSWALD MD Nov 06, 2024 20:37
[2024-11-06 22:00] VITALS: BP 133/80; PULSE 91; RESP 20; TEMP 98.4; O2SAT 98
[2024-11-07 05:48] LABS: MEAN PLATELET VOLUME 7.1 FL (7.4-10.4); RED CELL DISTRIBUTION WIDTH 14.7 % (11.5-14.5)
[2024-11-07 06:22] LABS: CREATININE 0.62 MG/DL (0.60-1.10); TOTAL CARBON DIOXIDE 25.0 MMOL/L (24-32); eCRCL 115 ML/MIN; eGFR > 90 ML/MIN
[2024-11-07 06:33] VITALS: BP 137/95; PULSE 88; RESP 16; TEMP 98.1; O2SAT 98
[2024-11-07 08:03] VITALS: RESP 16
[2024-11-07 10:10] VITALS: BP 134/84; PULSE 100; RESP 20; TEMP 97.3; O2SAT 99
--- NOTE | 2024-11-07 11:55 | PROGRESS NOTE ---
Daily Progress Note Providers to CC ~ Antibiotic Timeout Antibiotic Ordered?: Yes Subjective Patient was seen in his room , looks comfortable. Patient is waiting for rehab placement . internet manager [place] working on rehab discharge plan for him. As per Infectious Disease specialist he needs placement and needs six weeks of IV antibiotics. Objective Vital Signs Date Time Temp Pulse Resp B/P (MAP) Pulse Ox O2 Delivery O2 Flow Rate FiO2 11/07/24 10:10 97.3 100 20 134/84 (101) 99 Room Air 11/07/24 08:03 0.0 Result Diagram: 11/07/24 0517 11/07/24516 General-patient not in any acute distress, alert awake oriented, chronically ill-appearing HEENT-atraumatic normocephalic, neck supple without elevated JVD, No lymphadenopathy bilaterally. Poor dentition Eyes-no icterus or pallor seen in eyes Chest-clear to auscultation bilaterally, breathing nonlabored no tachypnea, no wheezing, no crepitation, no crackles. Heart-S1-S2 normal, regular heart rate no murmur Abdomen bowel sounds positive on auscultation, soft nondistended nontender no guarding, no rigidity Neurology-grossly intact, nonfocal alert awake oriented Skin / Extremity- no pedal edema able to move all 4 extremities, well-healing round circumscribed left buttock open wound, right buttock wound very small in size and healing well. No tunneling noticed over left buttock wound. 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 The inflammatory changes extend to the ischial tuberosities. There are findings suspicious for mild acute osteomyelitis of the left ischial tuberosity. No abscess. Patient's wound examined and I have not noticed any tunneling of the wound , reviewed pelvic MRI results. Infectious disease consultation requested from Dr. Paul and she is willing to evaluate the patient in a.m. # paraplegia The patient is able to transfer with a slide board If needed physical therapy be ordered however this time that has not needed # hypertension Continue losartan # coronary artery disease Continue clopidogrel Continue metoprolol # UTI secondary to cystitis Secondary to chronic indwelling Lim catheter Change Lim Urine culture sent Currently on IV Zosyn # DVT prophylaxis Continue Plavix Patient's current condition is guarded we will continue to follow patient in a.m. Date of Service: Nov 07, 2024 Billing Provider: EMILIANO OSWALD MD Common Visit Codes: [id number] INP/OBS CARE(HIGH) EMILIANO OSWALD MD Nov 07, 2024 11:55
[2024-11-07 18:00] VITALS: BP 151/89; PULSE 80; RESP 19; TEMP 97.2; O2SAT 98
[2024-11-07 20:00] VITALS: RESP 19; O2SAT 98
[2024-11-07] MEDS: mag hydrox/Alum hydrox/simeth 30ml oral suspension PO PRN (21:15)
[2024-11-07 22:00] VITALS: BP 143/84; PULSE 89; RESP 16; TEMP 98.3; O2SAT 96
[2024-11-08 06:00] VITALS: BP 126/78; PULSE 78; RESP 17; TEMP 98.3; O2SAT 98
[2024-11-08 08:00] VITALS: RESP 16; O2SAT 98
[2024-11-08 09:59] LABS: MEAN PLATELET VOLUME 7.4 FL (7.4-10.4); RED CELL DISTRIBUTION WIDTH 14.5 % (11.5-14.5)
[2024-11-08 10:00] VITALS: BP 146/91; PULSE 84; RESP 16; TEMP 98.2; O2SAT 97
[2024-11-08 10:05] LABS: CREATININE 0.55 MG/DL (0.60-1.10); TOTAL CARBON DIOXIDE 24.9 MMOL/L (24-32); eCRCL 130 ML/MIN; eGFR > 90 ML/MIN
--- NOTE | 2024-11-08 12:22 | PROGRESS NOTE- Residence ---
Progress Note - Resident Providers to CC Resident Creating Document: JERMAN MCGOWAN CC: NHI PAUL DO ~ Antibiotic Timeout Antibiotic Ordered?: Yes Subjective Patient was seen and examined at bedside today. He reports to be doing better, he does have headache this morning. Awaiting placement Objective Vital Signs Date Time Temp Pulse Resp B/P (MAP) Pulse Ox O2 Delivery O2 Flow Rate FiO2 11/08/24 08:00 16 98 Room Air 11/08/24 07:58 66 11/07/24 22:00 98.3 143/84 (103) 11/07/24 20:00 0.0 Result Diagram: 11/08/24 0930 11/08/24 0930 General: awake, alert oriented to place, time, and person HEENT: No pallor present, no icterus, moist mucous membranes Neck: No masses and tenderness Resp: Unlabored. Lungs clear to auscultation bilaterally. Chest: Normal expansion Cardiovascular: Regular Rate and rhythm, normal S1 and S2 without murmur, rub or gallop Abdomen: Soft and nontender, no organomegaly, no guarding and rigidity, bowel sounds present Neuro: No focal weakness in the upper and lower limb muscles, power of the muscles 5/5 bilateral upper. Paraplegic. Cranial nerves intact Extremities: No cyanosis,clubbing or edema Skin: Warm and Dry. 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 Infectious Disease has been consulted for further evaluation and management of infected decubitus ulcer and possible ischial bone osteomyelitis. Left ischial bone osteomyelitis Infected gluteal decubitus wound Chronic indwelling Lim catheter with possible MRSA colonization CBC is unremarkable Growing MRSA in urine and positive MRSA screen MRI shows mild osteomyelitis in left ischial bone On vancomycin and Zosyn Patient discussed in detail with Dr. Paul, plan: Since patient has done a good job offloading since his injury, and wound is small, he has good chance of recovery with antibiotics Continue Vancomycin, Ceftriaxone and Flagyl Continue abx for 6 weeks Continue wound care Other comorbidities include: CAD status post stent CKD 1 Prediabetes Management per hospitalist team Disposition: Will continue IV abx for 6 weeks. Awaiting placement Jerman Glez MD Internal Medicine Resident PGY-2 Date of Service: Nov 08, 2024 Billing Provider: NHI PAUL DO Addendum Patient seen and examined with Dr. Glez. Agree with the above assessment and plan. Patient is pending a 6 week course of therapy and waiting on placement JERMAN MCGOWAN Nov 08, 2024 12:21 NHI PAUL DO Nov 08, 2024 20:45
--- NOTE | 2024-11-08 15:05 | PROGRESS NOTE ---
Daily Progress Note Providers to CC ~ Antibiotic Timeout Antibiotic Ordered?: Yes Subjective Patient was seen in his room , looks comfortable. Patient is waiting for rehab placement . eye clinic manager Beti working on rehab discharge plan for him. As per Infectious Disease specialist he needs placement and needs six weeks of IV antibiotics. Objective Vital Signs Date Time Temp Pulse Resp B/P (MAP) Pulse Ox O2 Delivery O2 Flow Rate FiO2 11/08/24 08:00 16 98 Room Air 11/08/24 07:58 66 11/07/24 22:00 98.3 143/84 (103) 11/07/24 20:00 0.0 Result Diagram: 11/08/24 0930 11/08/24 0930 General-patient not in any acute distress, alert awake oriented, chronically ill-appearing HEENT-atraumatic normocephalic, neck supple without elevated JVD, No lymphadenopathy bilaterally. Poor dentition Eyes-no icterus or pallor seen in eyes Chest-clear to auscultation bilaterally, breathing nonlabored no tachypnea, no wheezing, no crepitation, no crackles. Heart-S1-S2 normal, regular heart rate no murmur Abdomen bowel sounds positive on auscultation, soft nondistended nontender no guarding, no rigidity Neurology-grossly intact, nonfocal alert awake oriented Skin / Extremity- no pedal edema able to move all 4 extremities, well-healing round circumscribed left buttock open wound, right buttock wound very small in size and healing well. No tunneling noticed over left buttock wound. 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 The inflammatory changes extend to the ischial tuberosities. There are findings suspicious for mild acute osteomyelitis of the left ischial tuberosity. No abscess. Patient's wound examined and I have not noticed any tunneling of the wound , reviewed pelvic MRI results. Infectious disease consultation requested from Dr. Paul and she is willing to evaluate the patient in a.m. # paraplegia The patient is able to transfer with a slide board If needed physical therapy be ordered however this time that has not needed # hypertension Continue losartan # coronary artery disease Continue clopidogrel Continue metoprolol # UTI secondary to cystitis Secondary to chronic indwelling Lim catheter Change Lim Urine culture sent Currently on IV Zosyn # DVT prophylaxis Continue Plavix Patient's current condition is guarded we will continue to follow patient in a.m. Date of Service: Nov 08, 2024 Billing Provider: EMILIANO OSWALD MD Common Visit Codes: [id number] INP/OBS CARE(HIGH) EMILIANO OSWALD MD Nov 08, 2024 15:05
[2024-11-08 18:00] VITALS: BP 136/85; PULSE 84; RESP 19; TEMP 97.4; O2SAT 99
[2024-11-08 22:00] VITALS: BP 100/71; PULSE 98; RESP 13; TEMP 98.8; O2SAT 97
[2024-11-09 06:00] VITALS: BP 123/63; PULSE 91; PULSE 98; RESP 14; TEMP 98.1; O2SAT 99
[2024-11-09 09:30] VITALS: RESP 16
[2024-11-09 10:00] VITALS: BP 127/76; PULSE 108; RESP 18; TEMP 98.3; O2SAT 99
--- NOTE | 2024-11-09 14:16 | PROGRESS NOTE ---
Daily Progress Note Providers to CC ~ Antibiotic Timeout Antibiotic Ordered?: Yes Subjective No acute events overnight. Patient examined at bedside. No new complaints, not in acute distress. Patient denies chest pain, sob, palpitations, abdominal pain, n/v/d. Blood cultures resulted negative. PICC today, pending rehab. Objective Vital Signs Date Time Temp Pulse Resp B/P (MAP) Pulse Ox O2 Delivery O2 Flow Rate FiO2 11/09/24 10:00 98.3 108 18 127/76 (93) 99 Room Air 11/09/24 08:00 0.0 Result Diagram: 11/08/2492911/08/24929 Physical Exam General: Generalized weakness, A&Ox 3, NAD HEENT: Normocephalic, PERRLA Neck: Supple, trachea midline, no JVD Chest: Clear to auscultation bilaterally Cardiovascular: RRR, S1&S2 GI: Soft and nontender Extremities: Paraplegia FISH HATCHERY INSPECTOR: CN II-XII intact, no focal deficits Musculoskeletal: Paraplegia Skin: Warm and intact Coagulation Studies Laboratory Tests Test 11/02/24 12:54 Prothrombin Time 9.8 SECONDS (9.0-12.0) INR International Normalized Ratio 1.0 INR Activated Partial Thromboplast Time 28 SECONDS (22-32) Coagulation Comments Problem\Assessment\Plan Problems/Diagnosis: (1) UTI (urinary tract infection) Assessment & Plan Left ischial bone osteomyelitis- POA Infected gluteal decubitus wound Paraplegia -11/09: continue IV Zosyn and IV vancomycin, oral Flagyl per ID recommendation, continue wound care -PICC today HTN -Continue losartan CAD -Continue clopidogrel, metoprolol UTI secondary to cystitis, MRSA -ceftriaxone DVT/VTE prophylaxis: heparin Code Status: Full Code Date of Service: Nov 09, 2024 Billing Provider: CHERELLE MALCOLM Common Visit Codes: [id number] INP/OBS CARE(MOD) CHERELLE MALCOLM Nov 09, 2024 14:16
[2024-11-09 15:06] LABS: MEAN PLATELET VOLUME 7.1 FL (7.4-10.4); RED CELL DISTRIBUTION WIDTH 14.7 % (11.5-14.5)
[2024-11-09 15:16] LABS: CREATININE 0.67 MG/DL (0.60-1.10); TOTAL CARBON DIOXIDE 25.6 MMOL/L (24-32); eCRCL 107 ML/MIN; eGFR > 90 ML/MIN
[2024-11-09 18:00] VITALS: BP 131/82; PULSE 95; RESP 17; TEMP 97.3; O2SAT 97
[2024-11-09] MEDS: heparin, porcine 5000 units/ml vial SQ SCH (20:05)
[2024-11-09 22:00] VITALS: BP 125/71; PULSE 84; RESP 14; TEMP 98.2; O2SAT 98
[2024-11-10 05:42] LABS: MEAN PLATELET VOLUME 7.4 FL (7.4-10.4); RED CELL DISTRIBUTION WIDTH 14.6 % (11.5-14.5)
[2024-11-10 06:00] VITALS: BP 131/87; PULSE 92; RESP 14; TEMP 98.1; O2SAT 98
[2024-11-10 06:32] LABS: CREATININE 0.72 MG/DL (0.60-1.10); TOTAL CARBON DIOXIDE 22.3 MMOL/L (24-32); eCRCL 99 ML/MIN; eGFR > 90 ML/MIN
[2024-11-10] MEDS: VANCOMYCIN LEVEL IV ONE (09:30)
[2024-11-10 10:00] VITALS: BP 131/71; PULSE 101; RESP 17; TEMP 97.9; O2SAT 98
--- NOTE | 2024-11-10 11:36 | PROGRESS NOTE ---
Daily Progress Note Providers to CC ~ Antibiotic Timeout Antibiotic Ordered?: Yes Subjective No acute events overnight. Patient examined at bedside. No new complaints, not in acute distress. Patient denies chest pain, sob, palpitations, abdominal pain, n/v/d. Vss, labs unremarkable. Blood cultures resulted negative. PICC today, pending rehab. Objective Vital Signs Date Time Temp Pulse Resp B/P (MAP) Pulse Ox O2 Delivery O2 Flow Rate FiO2 11/10/24 08:23 86 11/09/24 22:00 98.2 14 125/71 (89) 98 Room Air 11/09/24 20:00 0.0 Result Diagram: 11/10/2441911/10/24 042 Physical Exam General: Generalized weakness, paraplegic, A&Ox 3, NAD HEENT: Normocephalic, PERRLA Neck: Supple, trachea midline, no JVD Chest: Clear to auscultation bilaterally Cardiovascular: RRR, S1&S2 GI: Soft and nontender Extremities: Paraplegia HOUSE NURSE: No focal deficits Musculoskeletal: Paraplegia Skin: Warm and intact Coagulation Studies Laboratory Tests Test 11/02/24 12:54 Prothrombin Time 9.8 SECONDS (9.0-12.0) INR International Normalized Ratio 1.0 INR Activated Partial Thromboplast Time 28 SECONDS (22-32) Coagulation Comments Problem\Assessment\Plan Problems/Diagnosis: (1) UTI (urinary tract infection) Assessment & Plan Left ischial bone osteomyelitis- POA Infected gluteal decubitus wound Paraplegia -11/09: continue IV Zosyn and IV vancomycin, oral Flagyl per ID recommendation, continue wound care -PICC today, pending rehab HTN -Continue losartan CAD -Continue clopidogrel, metoprolol UTI secondary to cystitis, MRSA -ceftriaxone DVT/VTE prophylaxis: heparin Code Status: Full Code Date of Service: Nov 10, 2024 Billing Provider: CHERELLE MALCOLM Common Visit Codes: [id number] INP/OBS CARE(MOD) CHERELLE MALCOLM Nov 10, 2024 11:36
[2024-11-10] MEDS: VANCOmycin 1250MG/NS 250ml Bag 250 ML IV SCH (12:07)
[2024-11-10 18:00] VITALS: BP 138/96; PULSE 97; RESP 16; TEMP 98; O2SAT 96
[2024-11-10 20:00] VITALS: RESP 16
[2024-11-10 22:00] VITALS: BP 128/79; PULSE 97; RESP 16; TEMP 98.5; O2SAT 99
[2024-11-11 04:45] LABS: MEAN PLATELET VOLUME 7.0 FL (7.4-10.4); RED CELL DISTRIBUTION WIDTH 14.8 % (11.5-14.5)
[2024-11-11 05:05] LABS: CREATININE 0.62 MG/DL (0.60-1.10); TOTAL CARBON DIOXIDE 23.5 MMOL/L (24-32); eCRCL 115 ML/MIN; eGFR > 90 ML/MIN
[2024-11-11 06:00] VITALS: BP 136/88; PULSE 78; RESP 14; TEMP 97.9; O2SAT 98
[2024-11-11 10:00] VITALS: BP 106/65; PULSE 100; RESP 16; TEMP 98; O2SAT 98
--- NOTE | 2024-11-11 12:13 | DISCHARGE SUMMARY ---
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 Wound care consult is ordered the patient was started on IV vancomycin IV Zosyn which will be continued." Hospital Course Diagnostic findings were notable for MRI pelvis revealing bilateral cellulitis in the lower gluteal folds and mild acute osteomyelitis of left ischial tuberosity, without evidence of abscess. Other findings were notable for urinalysis with culture indicating MRSA urinary tract infection. CT abdomen/pelvis revealed bilateral decubitus ulcers and negative for acute abdominal/pelvic finding. Infectious Disease Dr. Paul was consulted who recommended 6-week course of vancomycin, ceftriaxone, metronidazole. Patient received PICC line placement. Patient did not experience further complications throughout the entire hospital stay. Patient was seen and examined on the day of discharge. On day of discharge, vss and labs unremarkable. Blood cultures resulted negative. All labs, diagnostic workups, discharge plan discussed with patient in details during visit before discharge. All questions and concerns answered to the best of my professional knowledge. Patient is to be discharged to rehab for continued intravenous antibiotic therapy. Physical Exam General: Generalized weakness, paraplegic, A&Ox 3, NAD HEENT: Normocephalic, PERRLA Neck: Supple, trachea midline, no JVD Chest: Clear to auscultation bilaterally Cardiovascular: RRR, S1&S2 GI: Soft and nontender Extremities: Paraplegia FREIGHT HANDLER: No focal deficits Musculoskeletal: Paraplegia Skin: Warm and intact *Problems/Diagnosis: (1) UTI (urinary tract infection) Status: Acute Total Time Spent on D/C: > 30 Minutes Date of Service: Nov 11, 2024 Billing Provider: CHERELLE MALCOLM Common Visit Codes: [id number] DISCH DAY >30min CHERELLE MALCOLM Nov 11, 2024 12:11
[2024-11-11 16:11] VITALS: RESP 16
--- NOTE | 2024-11-11 22:58 | PROGRESS NOTE ---
Progress Note ID Providers to CC ~ Progress Note Progress Note: Antibiotic Days Vanc 9, Rocephin 6, Flagyl 6 Lines PICC Micro 11/02 Blood- negative 11/02 Urine- MRSA 11/04 Blood- negative Subjective: Patient was headed to SNF in [place] Objective: Vitals: Afebrile, 100, 16, 106/65, 100% on RA Alert, NAD Regular Clear anteriorly Soft Para PICC occlusively dressed Laboratory Tests 11/11/24 04:20 Assessment // L ischial osteomyelitis // Paraplegia // Neurogenic bowel/bladder // NKDA Plan -Continue empiric Vanc, Rocephin, Flagyl for 6 week course (another 5 weeks) -Weekly CBC, CMP, ESR, CRP -Noted he is going to [place] -Please remove PICC once therapy is complete -Wound care NHI SAMANO DO Nov 11, 2024 22:58
[2024-11-11] MEDS ORDERED: VANCOMYCIN LEVEL IV ONE (23:30)
== END 2024-11-11 17:51 | disposition swing bed (61) | DRG 344 ==
LOC: ER 11:36 → ED HOLD 17:31 → SUR 3N 19:50
PROVIDERS: ADMIT Family Medicine; ATTEND Family Medicine
PROC: BW211ZZ Computerized Tomography (CT Scan) of Abdomen and Pelvis using Low Osmolar Contrast (ICD-10-PCS; principal; 2024-11-02)
PROC: 02HV33Z Insertion of Infusion Device into Superior Vena Cava, Percutaneous Approach (ICD-10-PCS; 2024-11-09)
PROC: 4A02X4A Measurement of Cardiac Electrical Activity, Guidance, External Approach (ICD-10-PCS; 2024-11-09)
DX: M86.8X8 Other osteomyelitis, other site (principal); G82.20 Paraplegia, unspecified; K59.2 Neurogenic bowel, not elsewhere classified; L89.159 Pressure ulcer of sacral region, unspecified stage; N30.90 Cystitis, unspecified without hematuria; I25.10 Atherosclerotic heart disease of native coronary artery without angina pectoris; L89.319 Pressure ulcer of right buttock, unspecified stage; B95.62 Methicillin resistant Staphylococcus aureus infection as the cause of diseases classified elsewhere; L03.317 Cellulitis of buttock; I10 Essential (primary) hypertension; N31.9 Neuromuscular dysfunction of bladder, unspecified; S31.829A Unspecified open wound of left buttock, initial encounter; X58.XXXA Exposure to other specified factors, initial encounter; Z79.01 Long term (current) use of anticoagulants; Z79.899 Other long term (current) drug therapy; I25.2 Old myocardial infarction; Y93.89 Activity, other specified; Y92.89 Other specified places as the place of occurrence of the external cause; Y99.8 Other external cause status; Z59.00 Homelessness unspecified
CPT/HCPCS: 36415; 36569; 72197; 74177; 76942; 80048; 80053; 80202; 81001; 82550; 82553; 82948; 83036; 83605; 83735; 83880; 84484; 85025; 85610; 85730; 87040; 87077; 87081; 87088; 87186; 93005; 96365; 96367; 99285; A4314; A4333; A4649; A5200; A6196; A6212; A6213; A6250; A6253; A6258; A6260; A6449; C1751; G0378; J0696; J1644; J2543; J3373; J3374; J3375; J7030; Q9967

== ENCOUNTER 2025-02-10 06:19 | Emergency (ER) | payer MEDICAID ==
[~2025-02-10] VITALS: Ht 182.9 cm; Wt 79.5 kg
[~2025-02-10 06:19] MED LIST: CLOP75TA34 PO; LOSA-415 PO; METH-798 PO; METO-395 PO; NITR0.4T48; NITR0.4T51 SL; OXYB5TAB21 PO
[2025-02-10 07:34] LABS: MEAN PLATELET VOLUME 7.4 FL (7.4-10.4); RED CELL DISTRIBUTION WIDTH 16.5 % (11.5-14.5)
[2025-02-10 07:37] LABS: CREATININE 0.74 MG/DL (0.60-1.10); TOTAL CARBON DIOXIDE 24.0 MMOL/L (24-32); eCRCL 127 ML/MIN; eGFR > 90 ML/MIN
[2025-02-10 07:50] LABS: LEUKOCYTE ESTERASE ,URINE SMALL (Neg); NITRITES, URINE POSITIVE (Neg); OCCULT BLOOD,URINE MODERATE (Neg)
[2025-02-10 07:59] LABS: UA COLLECTION TYPE FOLEY CATH
[2025-02-10 08:00] LABS: MUCUS STRANDS MODERATE /LPF (Neg); SQUAMOUS EPITHELIAL CELL,UR FEW /LPF (FEW)
[2025-02-10 08:01] LABS: WBC CLUMPS,URINE FEW /HPF (NEGATIVE)
--- NOTE | 2025-02-10 11:46 | Physician Documentation ---
History of Present Illness ~ Chief Complaint: Diarrhea Stated Complaint: MULTIPLE COMPLAINTS Time Seen by MD: 07:12 Primary Medical Doctor: [facility] Mode of Arrival: POV, Wheelchair HPI 54 year old male reports that he was recently admitted for osteomyelitis and that during that hospitalization he developed c.diff for which he was successfully treated. He reports that he now had had a recurrence of symptoms of diarrhea, and that he has felt chills and generalized malaise. Denies fevers, N/V/D, cough, shortness of breath chest pain. Medication Reconciliation Allergies: Coded Allergies: No Known Allergies (Unverified , 02/10/25) Scheduled Clopidogrel Bisulfate (Clopidogrel), 1 TAB PO DAILY, (Reported) Losartan Potassium* (Cozaar*), 12.5 MG PO DAILY, (Reported) Methocarbamol (Methocarbamol), 1 TAB PO Q12H, (Reported) Metoprolol Succinate (Metoprolol Succinate), 12.5 MG PO DAILY, (Reported) Oxybutynin Chloride (Oxybutynin Chloride), 1 TAB PO DAILY, (Reported) Scheduled PRN Nitroglycerin SL* (Nitrostat SL*), 1 TAB SL Q5MIN PRN for Chest pain Q5min PRNx3-call MD, (Reported) Miscellaneous Medications Nitroglycerin (Nitroglycerin), (Reported) Past Medical History Patient History: Patient reports no known family medical history. Smoking Status: Former smoker Review of Systems All Other Systems at this time: Reviewed and Negative Physical Exam Vital Signs: Temperature: 96.8, Source: Oral, Heart Rate: 96, Respiratory Rate: 18, BP: 135/80, Pulse Oximetry: 99, Weight: 79.550 Oxygen Flow Rate: 0 Physical Exam HEENT: PERRL, moist oral mucosa, EOMI Pulmonary: No respiratory distress Cardiac: RRR, no murmur, rub or gallop GI: nondistended, soft, nontender, no guarding, no rebound MSK: no deformity Skin: w/d/i, no rash Neuro: nonfocal other than baseline deficits Psych: normal affect Progress Results/Orders Results/Orders Orders - JUAN ANTONIO GARNER MD C Diff Toxin (02/10/25 07:13) Cult Urine + [place] [address] (02/10/25 08:01) Cephalexin Capsule (Keflex Capsule) (02/10/25 11:55) Completed Orders - JUAN ANTONIO GARNER MD Cbc/Diff (02/10/25 06:32) BMP (02/10/25 06:32) Lipase (02/10/25 06:32) CMP (02/10/25 06:32) Ua W/Microscopic, Cult If Ind (02/10/25 07:43) Vital Signs 02/10/25 02/10/25 02/10/25 02/10/25 06:24 07:26 07:39 09:30 Temp 96.8 96.8 96.8 Pulse 102 102 84 Resp 18 18 18 16 B/P (MAP) 154/100 162/100 (120) 116/88 (97) Pulse Ox 99 99 97 O2 Flow Rate 0 0 0 02/10/25 11:30 Temp 96.8 Pulse 96 Resp 18 B/P (MAP) 135/80 (98) Pulse Ox 99 O2 Flow Rate 0 Laboratory Tests Test 02/10/25 07:16 02/10/25 07:43 White Blood Count 10.9 Red Blood Count 4.94 Hemoglobin 12.9 L Hematocrit 40.2 L Mean Corpuscular Volume 81.4 Mean Corpuscular Hemoglobin 26.2 L Mean Corpuscular Hemoglobin Concent 32.2 L Red Cell Distribution Width 16.5 H Platelet Count 353 Mean Platelet Volume 7.4 Neutrophils (%) (Auto) 71.2 Lymphocytes (%) (Auto) 14.5 L Monocytes (%) (Auto) 10.4 Eosinophils (%) (Auto) 3.5 Basophils (%) (Auto) 0.4 Neutrophils # (Auto) 7.7 Lymphocytes # (Auto) 1.6 Monocytes # (Auto) 1.1 H Eosinophils # (Auto) 0.4 Basophils # (Auto) 0.0 CBC Comment Sodium Level 141 Potassium Level 3.3 L Chloride Level 103 Carbon Dioxide Level 24.0 Anion Gap 14 Blood Urea Nitrogen 11 Creatinine 0.74 Estimated GFR/1.73 m2 > 90 BUN/Creatinine Ratio 14.9 Glucose Level 91 Calcium Level 8.5 Total Bilirubin 0.3 Aspartate Amino Transf (AST/SGOT) 25 Alanine Aminotransferase (ALT/SGPT) 49 Alkaline Phosphatase 77 Total Protein 7.4 Albumin 2.6 L Globulin 4.8 H Albumin/Globulin Ratio 0.5 L Lipase 37 Chemistry Comments Urine Specimen Description Lim cath Urine Color Yellow Urine Clarity Slightly cloudy Urine pH 6.0 Urine Specific [place] 1.020 Urine Protein Trace Urine Glucose (UA) Negative Urine Ketones 40 H Urine Occult Blood Moderate H Urine Nitrite Positive H Urine Bilirubin Negative Urine Urobilinogen 0.2 Urine Leukocyte Esterase Small H Urine RBC 0-2 Urine WBC Tntc H Urine WBC Clumps Few Urine Squamous Epithelial Cells Few Urine Bacteria 4+ Urine Mucus Moderate Urine Culture Indicated Indicated Volume Urine Centrifuged 10 ml Urine Comment Microbiology Date/Time Source Procedure Growth Status 02/10/25 08:01 Urine Lim Cath Urine Culture - Preliminary Culture received. Resulted Medical Decision Making Additional information obtaine: N/A Findings 54 year old male with recent history of c.diff and recurrent symptoms. Workup was consistent with UTI and stool sample provided was solid rather than liquid. Will discharge patient with treatment for UTI and a sample cup to collect liquid stool at home and return for sample c.diff analysis. return precautions discussed. Diff Dx GI Bleed:Consideration: Include: Other Diff Dx Pain:Considerations: Include: Other Diff Dx N/V/D:Considerations: Include: Other Diff Dx Rectal:Considerations: Include: Other Additional Comments Ddx = c.diff, UTI, pyelonephritis, viral gastroenteritis Departure Disposition: HOME / SELF CARE / HOMELESS Impression: Primary Impression: UTI (urinary tract infection) Condition: Stable Discharge Instructions: Urinary Tract Infection, Adult Referrals: NO PRIMARY CARE PROVIDER (PCP) Prescriptions Cephalexin*Monohydrate* (Keflex*) 500 Mg Capsule 1 CAP PO QID, #28 CAP Prov: JUAN ANTONIO GARNER MD 02/10/25 Education Educated: Patient Educated regarding: diagnosis, treatment, prognosis, need for follow up Signature Scribe Signature: . Attestation: JUAN ANTONIO LARES MD Feb 10, 2025 11:46
[2025-02-10] MEDS ORDERED: CEPH-585 PO (11:55)
[2025-02-10 12:08] VITALS: BP 135/88; PULSE 98; RESP 15; TEMP 96.8; O2SAT 99
== END 2025-02-10 12:16 | disposition home or self-care (01) ==
LOC: ER 06:19
DX: N39.0 Urinary tract infection, site not specified (principal); Z79.899 Other long term (current) drug therapy
CPT/HCPCS: 36415; 80053; 81001; 83690; 85025; 87077; 87088; 87186; 99285

== ENCOUNTER 2025-02-22 07:53 | Emergency (ER) | payer MEDICAID ==
[~2025-02-22] VITALS: Ht 182.9 cm; Wt 77.3 kg
[~2025-02-22 07:53] MED LIST changes: +CEPH-585 PO
--- NOTE | 2025-02-22 08:44 | Physician Documentation ---
History of Present Illness ~ Chief Complaint: Multiple Medical Complaints Stated Complaint: COLD SYMPTOMS Time Seen by MD: 08:19 Primary Medical Doctor: [facility] HPI 54-year-old male presents to the ED well known to this facility presents with a complaint of cold cough and congestion. Patient is currently staying at the [facility]. States he is developing a pressure ulcer on his left gluteus. Denies any fevers nausea vomiting . states that the area was draining. Patient states he wants to go to wound care for his reported pressure ulcer. Day of Onset: Feb 22, 2025 Medication Reconciliation Allergies: Coded Allergies: No Known Allergies (Unverified , 02/22/25) Scheduled Cephalexin*Monohydrate* (Keflex*), 1 CAP PO QID Clopidogrel Bisulfate (Clopidogrel), 1 TAB PO DAILY, (Reported) Losartan Potassium* (Cozaar*), 12.5 MG PO DAILY, (Reported) Methocarbamol (Methocarbamol), 1 TAB PO Q12H, (Reported) Metoprolol Succinate (Metoprolol Succinate), 12.5 MG PO DAILY, (Reported) Oxybutynin Chloride (Oxybutynin Chloride), 1 TAB PO DAILY, (Reported) Scheduled PRN Nitroglycerin SL* (Nitrostat SL*), 1 TAB SL Q5MIN PRN for Chest pain Q5min PRNx3-call MD, (Reported) Miscellaneous Medications Nitroglycerin (Nitroglycerin), (Reported) Past Medical History Patient History: Patient reports no known family medical history. Review of Systems All Other Systems at this time: Reviewed and Negative ROS As stated above in the HPI, otherwise all systems are reviewed and negative. Physical Exam Vital Signs: Temperature: 97.2, Source: Oral, Heart Rate: 89, Respiratory Rate: 18, BP: 108/80, Pulse Oximetry: 98, Weight: 77.270 Oxygen Flow Rate: 0 Physical Exam General: Alert, no apparent distress. Respiratory: Lungs clear, no respiratory distress. Chest: No accessory muscle use. Extremities: Normal range of motion, no deformity. 1 cm area of erythema in the left gluteus. No obvious drainage. Blanchable. Neurologic: Oriented x4. Psychiatric: Normal mood and affect. Skin: Normal color, warm and dry. No edema, no ecchymosis. Progress Results/Orders Results/Orders Orders - MARK GUPTA UNATTENDED GROUND SENSOR SPECIALIST Chest,Single View (02/22/25 08:44) Completed Orders - MARK GUPTA UNATTENDED GROUND SENSOR SPECIALIST Chest,Single View (02/22/25 08:44) Vital Signs 02/22/25 07:58 Temp 97.2 Pulse 89 Resp 18 B/P (MAP) 108/80 Pulse Ox 98 O2 Flow Rate 0 Medical Decision Making Additional information obtaine: old records Findings I do not perceive or appreciate any signs of acute pressure ulcers. He has a my exam appreciated more of a pimple in the affected area. Patient's lung sounds were clear no signs of rales wheezing. Vitals are reassuring to the patient's baseline. Suspect the patient is suffering from an upper respiratory virus. Going to recommend that he follows up in the outpatient setting for further eval of any pressure ulcers. Do not see the need for any emergent procedures or imaging at this time. Patient does not present in any acute distress. He also does not complaining of any urinary symptoms secondary to chronic indwelling Lim My interpretation I did not appreciate any signs of consolidation or vascular congestion in the patient's chest x-ray Differential Dx:Considerations: Include: Allergic rhinitis, Influenza, Otitis media, Peritonsillar abscess, Pharyngitis-Diphtheria, Pharyngitis-Streptoccal, Pharyngitis-Viral, Pneumonia, Pnuemonitis, Sinusitis, URI, Other Departure Disposition: 01 HOME / SELF CARE / HOMELESS Impression: Primary Impression: Upper respiratory infection Condition: Stable Discharge Instructions: Upper Respiratory Infection, Adult, [id number] Referrals: NO PRIMARY CARE PROVIDER (PCP) Signature Scribe Signature: r Attestation: Scribed for Mark Gupta Poiser Balance by Mark Segovia NP . 02/22/25 08:43 MARK GUPTA UNATTENDED GROUND SENSOR SPECIALIST Feb 22, 2025 08:44
--- NOTE | 2025-02-22 09:21 | RADIOLOGY REPORT ---
EXAM: DI CHEST,SINGLE VIEW Indication: cough Technique: Single frontal view of the chest was obtained Comparison: CT CT ABDOMEN PELVIS W/ IV CONTRAST on DOS: 11/02/24 FINDINGS: Lines and Tubes: None Lungs: No focal consolidation. Pleura: No effusion. No pneumothorax. Cardiomediastinal contours: Unremarkable Bones: No acute osseous abnormality. IMPRESSION: No acute cardiopulmonary disease.
[2025-02-22 09:28] VITALS: BP 110/82; PULSE 88; RESP 16; TEMP 98.4; O2SAT 99
== END 2025-02-22 09:32 | disposition home or self-care (01) ==
LOC: ER 07:54
DX: J06.9 Acute upper respiratory infection, unspecified (principal); Z79.899 Other long term (current) drug therapy
CPT/HCPCS: 71045; 99283

== ENCOUNTER 2025-03-02 08:07 | Emergency (ER) | payer MEDICAID ==
[~2025-03-02] VITALS: Ht 182.9 cm; Wt 77.3 kg
[2025-03-02 08:12] VITALS: RESP 16; TEMP 97.4
--- NOTE | 2025-03-02 10:30 | Physician Documentation ---
History of Present Illness ~ Chief Complaint: Wound Stated Complaint: WOUND Time Seen by MD: 08:31 Primary Medical Doctor: [facility] 54-year-old male who is a paraplegic presents to the ED with a complaint of a foul smell coming from his left gluteal region. She has a history of pressure ulcers which have required long-term hospitalization. Denies any fevers however states that the wound has a very foul smell and drainage coming from it. Day of Onset of Wound: Mar 02, 2025 Tetanus within 5 years?: No Medication Reconciliation Allergies: Coded Allergies: No Known Allergies (Unverified , 03/02/25) Scheduled Cephalexin*Monohydrate* (Keflex*), 1 CAP PO QID Clopidogrel Bisulfate (Clopidogrel), 1 TAB PO DAILY, (Reported) Losartan Potassium* (Cozaar*), 12.5 MG PO DAILY, (Reported) Methocarbamol (Methocarbamol), 1 TAB PO Q12H, (Reported) Metoprolol Succinate (Metoprolol Succinate), 12.5 MG PO DAILY, (Reported) Oxybutynin Chloride (Oxybutynin Chloride), 1 TAB PO DAILY, (Reported) Scheduled PRN Nitroglycerin SL* (Nitrostat SL*), 1 TAB SL Q5MIN PRN for Chest pain Q5min PRNx3-call MD, (Reported) Miscellaneous Medications Nitroglycerin (Nitroglycerin), (Reported) Past Medical History Patient History: Patient reports no known family medical history. Review of Systems All Other Systems at this time: Reviewed and Negative ROS As stated above in the HPI, otherwise all systems are reviewed and negative. Physical Exam Vital Signs: Temperature: 97.4, Source: Oral, Respiratory Rate: 16, Weight: 77.270 Physical Exam General: Alert, no apparent distress. HEENT: PERRL, EOMI, no injection, moist mucous membranes. Neck: Full range of motion. Respiratory: Lungs clear, no respiratory distress. Chest: No accessory muscle use. Cardiovascular: Regular rate and rhythm, no murmurs. Gastrointestinal: Soft, nontender, nondistended. Bowels sounds present. Extremities: Normal range of motion, no deformity. Neurologic: Oriented x4. Psychiatric: Normal mood and affect. Skin: Normal color, warm and dry. No edema, no ecchymosis.inferiro aspect of left gluteus foul smelling 4 cm ulcer with drainage, warm to touch Progress Results/Orders Results/Orders Orders - MARK GUPTA H CERTIFIED HOME HEALTH AIDE Culture Blood (03/02/25 10:22) Urinalysis, Cult If Indicated (03/02/25 10:22) Monitor (03/02/25 10:22) Saline Lock (03/02/25 10:22) Completed Orders - MARK GUPTA H CERTIFIED HOME HEALTH AIDE Cbc/Diff (03/02/25 10:22) Procalcitonin (03/02/25 10:22) BMP (03/02/25 10:22) Lacticsepsis (03/02/25 10:22) Vital Signs 03/02/25 08:12 Temp 97.4 Resp 16 Laboratory Tests Test 03/02/25 10:35 03/02/25 10:41 Lactic Acid Level 1.2 White Blood Count 9.9 Red Blood Count 4.96 Hemoglobin 12.7 L Hematocrit 38.7 L Mean Corpuscular Volume 77.9 L Mean Corpuscular Hemoglobin 25.6 L Mean Corpuscular Hemoglobin Concent 32.9 L Red Cell Distribution Width 16.1 H Platelet Count 631 H Mean Platelet Volume 6.4 L Neutrophils (%) (Auto) 66.3 Lymphocytes (%) (Auto) 19.2 L Monocytes (%) (Auto) 10.5 Eosinophils (%) (Auto) 3.4 Basophils (%) (Auto) 0.6 Neutrophils # (Auto) 6.6 Lymphocytes # (Auto) 1.9 Monocytes # (Auto) 1.0 H Eosinophils # (Auto) 0.3 Basophils # (Auto) 0.1 CBC Comment Sodium Level 137 Potassium Level 3.7 Chloride Level 104 Carbon Dioxide Level 24.9 Anion Gap 8 Blood Urea Nitrogen 12 Creatinine 0.83 Estimated GFR/1.73 m2 > 90 BUN/Creatinine Ratio 14.5 Glucose Level 86 Calcium Level 9.3 Albumin 2.8 L Procalcitonin 0.05 Chemistry Comments Medical Decision Making Additional information obtaine: old records Findings This patient is a high-risk candidate for worsening infection his laboratory values are unremarkable with no white count lactic or elevated procalcitonin his vitals are reassuring he is afebrile not tachycardic. This time based on these findings and my physical exam he is currently meets criteria for outpatient oral antibiotic therapy. I will advise him to follow up if he has any worsening symptoms increased drainage or fever. Differential Dx:Considerations: Include: Abscess, Cellulitis, Dressing change, Healing wound, Other Departure Disposition: 01 HOME / SELF CARE / HOMELESS Impression: Primary Impression: Wound Discharge Instructions: How to Change Your Wound Dressing Referrals: NO PRIMARY CARE PROVIDER (PCP) Prescriptions Cephalexin*Monohydrate* (Keflex*) 500 Mg Capsule 1 CAP PO QID, #40 CAP Prov: MRAK GUPTA NP 03/02/25 Sulfamethoxazole/Trimethoprim (Septra Ds Tab) 800 Mg/160 Mg Tablet 1 TAB PO Q12H for 10 Days, #20 TAB Prov: MARK GUPTA NP 03/02/25 Education Educated: Patient Educated regarding: diagnosis Signature Scribe Signature: l Attestation: Scribed for Mark Gupta Forensic Dna Analyst by Mark Gupta - WILMA . 03/02/25 10:30 MARK GUPTA NP Mar 02, 2025 10:30
[2025-03-02 10:51] LABS: MEAN PLATELET VOLUME 6.4 FL (7.4-10.4); RED CELL DISTRIBUTION WIDTH 16.1 % (11.5-14.5)
[2025-03-02 11:13] LABS: CREATININE 0.83 MG/DL (0.60-1.10); eCRCL 112 ML/MIN; eGFR > 90 ML/MIN
[2025-03-02 11:16] LABS: TOTAL CARBON DIOXIDE 24.9 MMOL/L (24-32)
[2025-03-02] MEDS ORDERED: SULF1TAB45 PO (11:24)
[2025-03-02] MEDS ORDERED: CEPH-585 PO (11:24)
[2025-03-02 11:40] LABS: LEUKOCYTE ESTERASE ,URINE NEGATIVE (Neg); NITRITES, URINE POSITIVE (Neg); OCCULT BLOOD,URINE MODERATE (Neg)
[2025-03-02 11:53] LABS: UA COLLECTION TYPE OTHER
[2025-03-02 11:56] LABS: CAL OXALATE CRYSTALS 1+ /HPF (NEGATIVE); HYALINE CASTS 0-3 /LPF (NEGATIVE); MUCUS STRANDS MODERATE /LPF (Neg); SQUAMOUS EPITHELIAL CELL,UR NONE SEEN /LPF (FEW)
[2025-03-02 11:58] LABS: URIC ACID CRYSTALS 2+ /HPF (NEGATIVE)
== END 2025-03-02 12:22 | disposition home or self-care (01) ==
LOC: ER 08:07
DX: S30.9 Unspecified superficial injury of abdomen, lower back, pelvis and external genitals (principal); Z79.899 Other long term (current) drug therapy; X58.XXXA Exposure to other specified factors, initial encounter; Y93.89 Activity, other specified; Y92.89 Other specified places as the place of occurrence of the external cause; Y99.8 Other external cause status
CPT/HCPCS: 36415; 80048; 81001; 83605; 84145; 85025; 87040; 87088; 99283; A6213; A6449